=== PATIENT | female | born 1950 | race Caucasian/White ===

== ENCOUNTER → 2016-09-07 | Outpatient (CLI) | payer MEDICARE ==
[2016-09-07 12:09] LABS: CH 28.9; CHCM 32.2; HCT 43.6 % (34.0-46.0); HGB 14.1 gm/dL (11.4-16.0); MCH 29.1 pg (25.0-35.0); MCHC 32.3 g/dL (31.0-37.0); MCV 90.3 fL (80.0-100.0); Mean Platelet Volume 8.6; RBC 4.83 m/uL (3.80-5.40); RDW 13.6 % (11.5-15.5); WBC 13.3 k/uL (3.8-10.6); WBC (Perox) 13.79
[2016-09-07 12:28] LABS: ALT 33 U/L (9-52); AST 21 U/L (14-36); Alkaline Phosphatase 71 U/L (38-126); Anion Gap 12 mmol/L; Blood Urea Nitrogen 15 mg/dL (7-17); Calcium 9.5 mg/dL (8.4-10.2); Carbon Dioxide 24 mmol/L (22-30); Chloride 103 mmol/L (98-107); Cholesterol 229 mg/dL (<200); Glucose 121 mg/dL (74-99); HDL Cholesterol 69 mg/dL (40-60); Non-African American GFR(MDRD) >60 (>60 ml/min/1.73 sqM); Potassium 4.1 mmol/L (3.5-5.1); Sodium 139 mmol/L (137-145); Total Bilirubin 0.5 mg/dL (0.2-1.3); Total Protein 6.8 g/dL (6.3-8.2); Triglycerides 148 mg/dL (<150); Uric Acid 6.2 mg/dL (3.7-7.4)
[2016-09-07 13:16] LABS: Vitamin B12 688 pg/mL
[2016-09-07 14:24] LABS: Add Differential Manual Differential
[2016-09-07 14:27] LABS: Large Platelets Present; Nucleated Red Blood Cells 0 /100 WBC (0-0); Polychromasia Present; Total Cells Counted 100
[2016-09-07 14:28] LABS: Manual Review Performed
== END ==
LOC: LABWHC1 11:39
PROVIDERS: ATTEND Family Medicine
DX: D64.9 Anemia, unspecified (principal); E55.9 Vitamin D deficiency, unspecified; M10.9 Gout, unspecified; I10 Essential (primary) hypertension; F41.1 Generalized anxiety disorder; R53.82 Chronic fatigue, unspecified; E78.2 Mixed hyperlipidemia
CPT/HCPCS: 36415; 80053; 80061; 82306; 82607; 84443; 84550; 85025

== ENCOUNTER → 2017-04-01 | Outpatient (CLI) | payer MEDICARE ==
[2017-04-01 14:22] LABS: Aty Lym Flag Slight; CH 30.3; CHCM 33.1; HCT 44.1 % (34.0-46.0); HDW 2.34; MCH 29.3 pg (25.0-35.0); MCHC 31.8 g/dL (31.0-37.0); RBC 4.79 m/uL (3.80-5.40); WBC 14.7 k/uL (3.8-10.6); WBC (Perox) 14.31
[2017-04-01 14:28] LABS: Add Differential Manual Differential
[2017-04-01 14:49] LABS: ALT 31 U/L (9-52); AST 20 U/L (14-36); Alkaline Phosphatase 75 U/L (38-126); Anion Gap 13 mmol/L; Blood Urea Nitrogen 17 mg/dL (7-17); Calcium 9.8 mg/dL (8.4-10.2); Carbon Dioxide 25 mmol/L (22-30); Chloride 100 mmol/L (98-107); Cholesterol 236 mg/dL (<200); Glucose 96 mg/dL (74-99); HDL Cholesterol 70 mg/dL (40-60); Non-African American GFR(MDRD) >60 (>60 ml/min/1.73 sqM); Potassium 3.7 mmol/L (3.5-5.1); Sodium 138 mmol/L (137-145); Total Bilirubin 0.5 mg/dL (0.2-1.3); Uric Acid 7.4 mg/dL (3.7-7.4)
[2017-04-01 15:02] LABS: Nucleated Red Blood Cells 0 /100 WBC (0-0); Total Cells Counted 200
== END | disposition home or self-care (01) ==
LOC: LABWHC1 13:36
PROVIDERS: ATTEND Family Medicine
DX: D17.9 Benign lipomatous neoplasm, unspecified (principal); C91.10 Chronic lymphocytic leukemia of B-cell type not having achieved remission; I10 Essential (primary) hypertension; I38 Endocarditis, valve unspecified; M10.9 Gout, unspecified; E55.9 Vitamin D deficiency, unspecified
CPT/HCPCS: 36415; 80053; 80061; 82306; 84443; 84550; 85025

== ENCOUNTER → 2017-04-16 | Outpatient (CLI) | payer MEDICARE ==
--- NOTE | 2017-04-16 14:06 | BD ---
EXAMINATION TYPE: MG DEXA axial skeleton. DATE OF EXAM: 04/16/2017 COMPARISON: 01/15/2016 CLINICAL HISTORY: Postmenopausal screening Height: 61 Weight: 194.7 FRAX RISK QUESTIONS: Alcohol (3 or more units per day): no Family History (Parent hip fracture): no Glucocorticoids (More than 3mos): no (Ex: prednisone, prednisolone, methylprednisolone, dexamethasone, and hydrocortisone). History of Fracture in Adulthood: yes Secondary Osteoporosis: 1. Type 1 Diabetes: no 2. Hyperthyroidism: no 3. Menopause before 45: yes 4. Malnutrition: no 5. Chronic liver disease: no Rheumatoid Arthritis: no Current Tobacco Use: no RISK FACTORS HISTORY OF: Hip Fracture (Right/Left): no Spine Fracture: no History of Wrist Fracture: no Surgery to Spine/Hip(right/left)/Wrist (right/left): no Family History of Osteoporosis: no Active: yes Diet low in dairy products/other sources of calcium: no Postmenopausal woman: hysterectomy age 30 Lost more than 2 inches in height since high school: no Frequent falls: no Poor Health: no Hyperparathyroidism: no Adrenal Insufficiency: no MEDICATIONS: Additional History: EXAM MEASUREMENTS: Bone mineral densitometry was performed using the [employer] System. Bone mineral density as measured about the Lumbar spine is: ----- L1-L4(G/cm2): 1.146 T Score Values are as follows: ----- L2: -1.1 ----- L3: -0.5 ----- L4: 1.9 ----- L1-L4: -0.3 Bone mineral density has: increased 4.3 % since study of: 01.15.2016 Bone mineral density about the R hip (g/cm2): 0.739 Bone mineral density about the L hip (g/cm2): 0.814 T Score values are as follows: -----R Neck: -2.1 -----L Neck: -1.6 -----R Total: -0.9 -----L Total: -0.3 Bone mineral density has: increased 0.7 % since study of: 01.15.2016 IMPRESSION: Osteopenia (T Score between -2.5 and -1) as noted by T score values with regards to both hips. There is slightly increased risk of fracture and the patient may be considered for treatment. Re-Screen 2-5 years. NOTE: T-SCORE=SD OF THE YOUNG ADULT MEAN.
--- NOTE | 2017-04-20 08:01 | MM ---
Reason for exam: screening (asymptomatic). Last mammogram was performed 1 year and 3 months ago. History: Patient is postmenopausal and history of other cancer. Took estrogen for 22 years beginning at age 31. Physical Findings: A clinical breast exam by your physician is recommended on an annual basis and results should be correlated with mammographic findings. MG 3D Screening Mammo W/Cad Bilateral CC and MLO view(s) were taken. Prior study comparison: January 15, 2016, bilateral MG 3d screening mammo w/cad. May 14, 2014, bilateral MG screening mammo w CAD. There are scattered fibroglandular densities. There is chronic nodularity in the right breast. No significant changes when compared with prior studies. ASSESSMENT: Negative, BI-RAD 1 RECOMMENDATION: Routine screening mammogram of both breasts in 1 year.
== END | disposition home or self-care (01) ==
LOC: RADMAMWWP 10:17
PROVIDERS: ATTEND Family Medicine
DX: Z12.31 Encounter for screening mammogram for malignant neoplasm of breast (principal); M85.851 Other specified disorders of bone density and structure, right thigh; M85.852 Other specified disorders of bone density and structure, left thigh
CPT/HCPCS: 77080; 77063; G0202

== ENCOUNTER → 2017-11-22 | Outpatient (CLI) | payer MEDICARE ==
[2017-11-22 12:15] LABS: HCT 41.5 % (34.0-46.0); HGB 13.7 gm/dL (11.4-16.0); MCH 30.3 pg (25.0-35.0); MCV 91.8 fL (80.0-100.0); Mean Platelet Volume 9.5; Platelet Count 182 k/uL (150-450); RBC 4.52 m/uL (3.80-5.40); RDW 13.3 % (11.5-15.5); WBC 16.1 k/uL (3.8-10.6)
[2017-11-22 12:26] LABS: ALT 31 U/L (9-52); AST 18 U/L (14-36); Albumin 4.2 g/dL (3.5-5.0); Alkaline Phosphatase 71 U/L (38-126); Anion Gap 14 mmol/L; Blood Urea Nitrogen 23 mg/dL (7-17); Calcium 9.6 mg/dL (8.4-10.2); Carbon Dioxide 24 mmol/L (22-30); Chloride 103 mmol/L (98-107); Cholesterol 176 mg/dL (<200); Glucose 94 mg/dL (74-99); HDL Cholesterol 70 mg/dL (40-60); LDL Cholesterol,Calculated 80 mg/dL (0-99); Potassium 4.2 mmol/L (3.5-5.1); Sodium 141 mmol/L (137-145); Total Bilirubin 0.5 mg/dL (0.2-1.3); Total Protein 6.4 g/dL (6.3-8.2); Triglycerides 131 mg/dL (<150)
[2017-11-22 14:10] LABS: Band Neutrophils % 1 %; Eosinophils # (M) 0.16 k/uL (0-0.7); Lymphocytes # (M) 12.56 k/uL (1.0-4.8); Monocytes # (M) 0.16 k/uL (0-1.0); Neutrophils % (M) 20 %; Nucleated Red Blood Cells 0 /100 WBC (0-0); Total Cells Counted 200
[2017-11-22 14:11] LABS: Anisocytosis (M) Present
[2017-11-22 17:11] LABS: Vitamin D 25 Hydroxy 40.6 ng/mL (30.0-100.0)
[2017-11-22 17:17] LABS: Folate, Serum 14.2 ng/mL
== END | disposition home or self-care (01) ==
LOC: LABWHC1 11:18
PROVIDERS: ATTEND Family Medicine
DX: I10 Essential (primary) hypertension (principal); E78.2 Mixed hyperlipidemia; E55.9 Vitamin D deficiency, unspecified; M1A.00X0 Idiopathic chronic gout, unspecified site, without tophus (tophi); R53.82 Chronic fatigue, unspecified
CPT/HCPCS: 36415; 80053; 80061; 82306; 82607; 82746; 84443; 85025

== ENCOUNTER → 2018-04-18 | Outpatient (CLI) | payer MEDICARE ==
[2018-04-18 14:04] LABS: HCT 41.4 % (34.0-46.0); HGB 13.8 gm/dL (11.4-16.0); MCH 30.8 pg (25.0-35.0); MCHC 33.4 g/dL (31.0-37.0); MCV 92.2 fL (80.0-100.0); Mean Platelet Volume 8.7; Platelet Count 205 k/uL (150-450); RBC 4.49 m/uL (3.80-5.40); RDW 13.6 % (11.5-15.5); WBC 29.2 k/uL (3.8-10.6)
[2018-04-18 14:22] LABS: Albumin 4.5 g/dL (3.5-5.0); Calcium 9.9 mg/dL (8.4-10.2); Potassium 3.5 mmol/L (3.5-5.1); Total Bilirubin 0.7 mg/dL (0.2-1.3); Total Protein 6.9 g/dL (6.3-8.2); Uric Acid 6.6 mg/dL (3.7-7.4)
[2018-04-18 15:15] LABS: Anisocytosis (M) Present; Monocytes # (M) 0.29 k/uL (0-1.0); Neutrophils % (M) 13 %; Nucleated Red Blood Cells 0 /100 WBC (0-0); Poikilocytosis (M) Present; Total Cells Counted 200
--- NOTE | 2018-04-19 11:12 | MM ---
Reason for exam: screening (asymptomatic). Last mammogram was performed 1 year ago. History: Patient is postmenopausal and history of other cancer. Took estrogen for 22 years beginning at age 31. Physical Findings: A clinical breast exam by your physician is recommended on an annual basis and results should be correlated with mammographic findings. MG 3D Screening Mammo W/Cad Bilateral CC and MLO view(s) were taken. Prior study comparison: April 16, 2017, bilateral MG 3d screening mammo w/cad. January 15, 2016, bilateral MG 3d screening mammo w/cad. There are scattered fibroglandular densities. No significant changes when compared with prior studies. ASSESSMENT: Benign, BI-RAD 2 RECOMMENDATION: Routine screening mammogram of both breasts in 1 year.
== END | disposition home or self-care (01) ==
LOC: RADMAMWWP 12:57
PROVIDERS: ATTEND Family Medicine
DX: Z12.31 Encounter for screening mammogram for malignant neoplasm of breast (principal); I10 Essential (primary) hypertension; G89.29 Other chronic pain; M81.0 Age-related osteoporosis without current pathological fracture; E78.2 Mixed hyperlipidemia; E55.9 Vitamin D deficiency, unspecified; M1A.00X0 Idiopathic chronic gout, unspecified site, without tophus (tophi)
CPT/HCPCS: 36415; 77063; 77067; 80053; 80061; 82306; 84443; 84550; 85025

== ENCOUNTER → 2019-05-01 | Outpatient (CLI) | payer MEDICARE ==
--- NOTE | 2019-05-02 12:55 | MM ---
Reason for exam: screening (asymptomatic). Last mammogram was performed 1 year ago. History: Patient is postmenopausal and history of other cancer. Took estrogen for 22 years beginning at age 31. Physical Findings: A clinical breast exam by your physician is recommended on an annual basis and results should be correlated with mammographic findings. MG 3D Screening Mammo W/Cad Bilateral CC and MLO view(s) were taken. Prior study comparison: April 18, 2018, bilateral MG 3d screening mammo w/cad. April 16, 2017, bilateral MG 3d screening mammo w/cad. There are scattered fibroglandular densities. Benign appearing bilateral calcifications. No suspicious abnormality. No significant changes when compared with prior studies. ASSESSMENT: Benign, BI-RAD 2 RECOMMENDATION: Routine screening mammogram of both breasts in 1 year.
== END | disposition home or self-care (01) ==
LOC: RADMAMWWP 11:28
PROVIDERS: ATTEND Family Medicine
DX: Z12.31 Encounter for screening mammogram for malignant neoplasm of breast (principal)
CPT/HCPCS: 77063; 77067

== ENCOUNTER → 2019-06-13 | Outpatient (CLI) | payer MEDICARE ==
[2019-06-13 14:16] LABS: HCT 37.8 % (34.0-46.0); HGB 12.4 gm/dL (11.4-16.0); MCH 31.7 pg (25.0-35.0); MCHC 32.8 g/dL (31.0-37.0); MCV 96.9 fL (80.0-100.0); Mean Platelet Volume 9.3; Platelet Count 185 k/uL (150-450); RDW 14.2 % (11.5-15.5)
[2019-06-13 14:25] LABS: WBC 89.2 k/uL (3.8-10.6)
[2019-06-13 15:05] LABS: Blast Cells # (M) 9.81 k/uL (0); Lymphocytes # (M) 74.04 k/uL (1.0-4.8); Monocytes # (M) 0.89 k/uL (0-1.0); Myelocytes # (M) 0.89 k/uL (0); Myelocytes % 1 %; Neutrophils # (M) 5.35 k/uL (1.3-7.7); Neutrophils % (M) 6 %; Nucleated Red Blood Cells 0 /100 WBC (0-0); Total Cells Counted 200
[2019-06-13 19:27] LABS: African American GFR (CKD) 101.7 (60.0-200.0); Albumin 4.8 g/dL (3.80-4.90); Albumin/Globulin Ratio 3.69 (1.60-3.17); Anion Gap 9.3 mmol/L (4.00-12.00); Calcium 9.1 mg/dL (8.7-10.3); Carbon Dioxide 26.7 mmol/L (21.6-31.8); Chol/HDL Ratio 2.85; Globulin 1.3 g/dL (1.6-3.3); LDL Cholesterol,Calculated 97.2 mg/dL (0.0-131.0); Non-African American GFR(CKD) 87.8 (60.0-200.0); Potassium 3.7 mmol/L (3.5-5.5); Total Bilirubin 0.6 mg/dL (0.2-1.2); Total Protein 6.1 g/dL (6.2-8.2); VLDL Calculation 15.8 mg/dL (5.00-40.00)
[2019-06-13 20:24] LABS: Folate, Serum 15.2 ng/mL
== END | disposition home or self-care (01) ==
LOC: LABWHC1 13:28
PROVIDERS: ATTEND Physician Assistant
DX: M81.0 Age-related osteoporosis without current pathological fracture (principal); I10 Essential (primary) hypertension; E55.9 Vitamin D deficiency, unspecified; C91.10 Chronic lymphocytic leukemia of B-cell type not having achieved remission; R53.82 Chronic fatigue, unspecified; E78.2 Mixed hyperlipidemia; R51 Headache
CPT/HCPCS: 36415; 80053; 80061; 82306; 82607; 82746; 84443; 85025

== ENCOUNTER → 2019-06-20 | Outpatient (CLI) | payer MEDICARE ==
--- NOTE | 2019-06-20 15:29 | BD ---
EXAMINATION TYPE: Axial Bone Density DATE OF EXAM: 06/20/2019 COMPARISON: 2017 CLINICAL HISTORY: M [age] Height: 61 Weight: 195 FRAX RISK QUESTIONS: Alcohol (3 or more units per day): no Family History (Parent hip fracture): no Glucocorticoids (More than 3mos): no (Ex: prednisone, prednisolone, methylprednisolone, dexamethasone, and hydrocortisone). History of Fracture in Adulthood: yes Secondary Osteoporosis: 1. Type 1 Diabetes: no 2. Hyperthyroidism: no 3. Menopause before 45: yes 4. Malnutrition: no 5. Chronic liver disease: no Rheumatoid Arthritis: no Current Tobacco Use: no RISK FACTORS HISTORY OF: Family History of Osteoporosis: unsure Active: yes Diet low in dairy products/other sources of calcium: no Postmenopausal woman: yes Take estrogen and/or progesterone medications: not now How long: age [age] Lost more than 2 inches in height since high school: no Frequent falls: no Poor Health: no Hyperparathyroidism: no Adrenal Insufficiency: no MEDICATIONS: Prednisone or other steroids: no Thyroid Medications: no Osteoporosis Medications: no Additional Medications: D3, multivitamin, blood pressure med, cholesterol med Additional History: Chronic Lymphocytic Leukemia EXAM MEASUREMENTS: Bone mineral densitometry was performed using the [employer] System. Bone mineral density as measured about the Lumbar spine is: ----- L1-L4(G/cm2): 1.193 T Score Values are as follows: ----- L2: -1.3 ----- L3: -0.3 ----- L4: 2.2 ----- L1-L4: 0.1 Bone mineral density has: Increased 1.6 % since study of: 04/16/2017 Bone mineral density about the R hip (g/cm2): 0.767 Bone mineral density about the L hip (g/cm2): 0.823 T Score values are as follows: -----R Neck: -1.9 -----L Neck: -1.5 -----R Total: -0.8 -----L Total: -0.3 Bone mineral density has: Increased 1.2% since study of: 04/16/2017 IMPRESSION: Osteopenia (T Score between -2.5 and -1). There is slightly increased risk of fracture and the patient may be considered for treatment. Re-Screen 2-5 years. NOTE: T-SCORE=SD OF THE YOUNG ADULT MEAN.
== END | disposition home or self-care (01) ==
LOC: RADBDWWP 12:45
PROVIDERS: ATTEND Family Medicine
DX: M85.80 Other specified disorders of bone density and structure, unspecified site (principal)
CPT/HCPCS: 77080

== ENCOUNTER → 2020-09-30 | Outpatient (CLI) | payer MEDICARE ==
--- NOTE | 2020-10-01 11:00 | ECHOF ---
Referral Reason:I34.0 nonrheumatic mitral insufficiency MEASUREMENTS -------- HEIGHT: 157.5 cm WEIGHT: 83.5 kg BP: RVIDd: 2.8 cm (< 3.3) IVSd: 0.8 cm (0.6 - 1.1) LVIDd: 5.4 cm (3.9 - 5.3) LVPWd: 0.9 cm (0.6 - 1.1) IVSs: 1.4 cm LVIDs: 3.6 cm LVPWs: 1.6 cm LAESV Index (A-L): 37.67 ml/m Ao Diam: 2.4 cm (2.0 - 3.7) AV Cusp: 1.8 cm (1.5 - 2.6) LA Diam: 3.3 cm (2.7 - 3.8) MV EXCURSION: 13.536 mm (> 18.000) MV EF SLOPE: 68 mm/s (70 - 150) EPSS: 0.6 cm MV E Raza: 1.19 m/s MV DecT: 175 ms MV A Raza: 0.83 m/s MV E/A Ratio: 1.44 AR PHT: 740 ms RAP: 5.00 mmHg RVSP: 14.63 mmHg FINDINGS -------- This was a technically good study. The left ventricular size is normal. Left ventricular wall thickness is normal. Overall left vent ricular systolic function is normal with, an EF between 55 - 60 %. The diastolic filling pattern is normal for the age of the patient 13.35. The right ventricle is normal in size. LA is moderately dilated 34-39 ml/m2 The right atrial size is normal. The aortic valve is trileaflet and appears structurally normal. There is mild aortic regurgitation. The mitral valve is normal. [id number] mitral regurgitation is present. The tricuspid valve appears structurally normal. Mild tricuspid regurgitation present. Right vent ricular systolic pressure is normal at < 35 mmHg. There is no pulmonic regurgitation present. The aortic root size is normal. Normal inferior vena cava with normal inspiratory collapse consistent with estimated right atrial pre ssure of 5 mmHg. There is no pericardial effusion. CONCLUSIONS -------- 1. The left ventricular size is normal. 2. Left ventricular wall thickness is normal. 3. Overall left ventricular systolic function is normal with, an EF between 55 - 60 %. 4. The diastolic filling pattern is normal for the age of the patient 13.35 5. LA is moderately dilated 34-39 ml/m2 6. There is mild aortic regurgitation. 7. Kcnp-eb-yoyykqsx mitral regurgitation is present. 8. Mild tricuspid regurgitation present. 9. There is no pericardial effusion. SALES MA[employer]GER [employer]: Marta Gruber RDCS
== END | disposition home or self-care (01) ==
LOC: RADECHMAIN 13:52
PROVIDERS: ATTEND Family Medicine
DX: I08.3 Combined rheumatic disorders of mitral, aortic and tricuspid valves (principal)
CPT/HCPCS: 93306

== ENCOUNTER → 2020-11-04 | Outpatient (CLI) | payer MEDICARE ==
--- NOTE | 2020-11-05 12:09 | MM ---
Reason for exam: screening (asymptomatic). Last mammogram was performed 1 year and 6 months ago. History: Patient is postmenopausal and history of other cancer. Took estrogen for 22 years beginning at age 31. Physical Findings: A clinical breast exam by your physician is recommended on an annual basis and results should be correlated with mammographic findings. MG 3D Screening Mammo W/Cad Bilateral CC and MLO view(s) were taken. Prior study comparison: May 01, 2019, bilateral MG 3d screening mammo w/cad. April 18, 2018, bilateral MG 3d screening mammo w/cad. There are scattered fibroglandular densities. Focal asymmetry enlarging 9mm mole on surface, questionable or subcutaneous lymph node. This finding is changed when compared with previous exams. ASSESSMENT: Incomplete: need additional imaging evaluation, BI-RAD 0 RECOMMENDATION: Special view mammogram of the right breast. (confirm mole on work up) If lesion persists on supplemental views, image directed ultrasound is recommended. [facility] will attempt to contact patient to return for supplemental views and ultrasound if indicated.
== END | disposition home or self-care (01) ==
LOC: RADMAMWWP 12:52
PROVIDERS: ATTEND Family Medicine
DX: Z12.31 Encounter for screening mammogram for malignant neoplasm of breast (principal); Z78.0 Asymptomatic menopausal state
CPT/HCPCS: 77063; 77067

== ENCOUNTER → 2020-11-11 | Outpatient (CLI) | payer MEDICARE ==
[2020-11-11 15:06] LABS: African American GFR (CKD) >90 (>60 ml/min/1.73 sqM); Blood Urea Nitrogen 19 mg/dL (7-17); Non-African American GFR(CKD) 90 (>60 ml/min/1.73 sqM)
--- NOTE | 2020-11-11 16:23 | CT ---
EXAMINATION TYPE: CT ChestAbdPelvis w con DATE OF EXAM: 11/11/2020 COMPARISON: None HISTORY: Chronic lymphocytic leukemia, observe for mets CT DLP: 1292 mGycm CONTRAST: CT scan of the chest, abdomen and pelvis is performed with Oral Contrast and with IV Contrast, patien t injected with 100 mL of Isovue 300. CT Chest: LUNGS: The lungs are clear and free of infiltrate or atelectasis. No pulmonary nodule or mass is det ected. No pleural effusion or CT evidence of interstitial lung disease. MEDIASTINUM: Thoracic aorta is of normal caliber. The heart is not enlarged. No evidence for media stinal mass or adenopathy. HILAR STRUCTURES: No evidence for mass. No hilar adenopathy is appreciated. OTHER: Massive bilateral axillary adenopathy measuring 4.3 cm on the left and 3.5 cm on the right. In numerable enlarged lymph nodes are seen bilaterally. Supraclavicular adenopathy partially imaged. CONTRAST CT ABDOMEN AND PELVIS FINDINGS: LIVER/GB: No calcified gallstones. No space occupying hepatic lesion. Biliary tree is of normal ca liber. PANCREAS: No inflammation. No distinct mass. SPLEEN: Spleen measures 13.6 cm craniocaudal dimension. No lesion seen. ADRENALS: No nodule. No thickening. KIDNEYS/BLADDER: No hydronephrosis. No nephrolithiasis. No distinct renal mass. BOWEL: Normal appendix. Normal bowel caliber. No inflammation. GENITAL ORGANS: No gross abnormality. LYMPH NODES: Periportal adenopathy measuring up to 2.9 cm. Celiac axis adenopathy measuring up to 1.5 cm. Para-aortic adenopathy measuring up to 2.1 cm. Pericaval adenopathy measuring up to 2.8 cm. Aort oenteric caval adenopathy measuring up to 1.9 cm. Common iliac chain adenopathy bilaterally measuring up to 2.5 cm. Internal iliac adenopathy on the left measuring up to 4.7 x 4.7 cm and on the right up per to 4.5 cm. External iliac adenopathy bilaterally as well as inguinal adenopathy. OSSEOUS STRUCTURES: No significant abnormality is seen. OTHER: No significant additional abnormality is seen. IMPRESSION: 1. Axillary, supraclavicular, retroperitoneal, celiac axis, periportal and pelvic adenopathy as discu ssed.
== END | disposition home or self-care (01) ==
LOC: RADCTMAIN 14:04
PROVIDERS: ATTEND Internal Medicine Hematology & Oncology
DX: C91.10 Chronic lymphocytic leukemia of B-cell type not having achieved remission (principal); C79.89 Secondary malignant neoplasm of other specified sites
CPT/HCPCS: 82565; 84520; 71260; 74177; 36415; Q9967

== ENCOUNTER → 2020-12-06 | Outpatient (CLI) | payer MEDICARE ==
--- NOTE | 2020-12-09 08:40 | MM ---
Reason for exam: additional evaluation requested from abnormal screening. Last mammogram was performed 1 month ago. History: Patient is postmenopausal and history of other cancer. Took estrogen for 22 years beginning at age 31. Physical Findings: Nurse Summary: 4cm adenopathy in the right and left breast (nurse ts). MG 3D Work Up W/Cad RT CC and MLO view(s) were taken of the right breast. Prior study comparison: November 04, 2020, bilateral MG 3d screening mammo w/cad. May 01, 2019, bilateral MG 3d screening mammo w/cad. There are scattered fibroglandular densities. Right 1.7cm nodule 9 o'clock 9cm from nipple. These results were verbally communicated with the patient and result sheet given to the patient on 12/06/20. ASSESSMENT: Incomplete: need additional imaging evaluation, BI-RAD 0 RECOMMENDATION: Ultrasound of the right breast.
--- NOTE | 2020-12-09 08:44 | USB ---
Reason for exam: additional evaluation requested from abnormal screening. History: Patient is postmenopausal and history of other cancer. Took estrogen for 22 years beginning at age 31. US Breast Workup Limited RT Right limited breast ultrasound including focal area of concern, retroareolar and axilla demonstrates a 1.3 x 1.1 x 0.7cm lobular lymph node at 9 o'clock, reactive lymph node corresponds to nodule and a 4.0 x 2.8 x 3.1cm oval, hypoechoic lesion at the axilla, abnormal lymph node, grossly in right axilla. 1: Intramammary lymph node larger but probably benign. 2: Abnormal grossly right axillary, history of CLL, correlate with CLL recurrence. These results were verbally communicated with the patient and result sheet given to the patient on 12/06/20. ASSESSMENT: Probably benign, BI-RAD 3 RECOMMENDATION: Follow-up diagnostic mammogram and ultrasound of the right breast in 6 months.
== END | disposition home or self-care (01) ==
LOC: RADMAMWWP 14:54
PROVIDERS: ATTEND Family Medicine
DX: N63.10 Unspecified lump in the right breast, unspecified quadrant (principal); N64.89 Other specified disorders of breast; Z78.0 Asymptomatic menopausal state
CPT/HCPCS: 77065; 76642; G0279; 77061

== ENCOUNTER → 2021-06-20 | Outpatient (CLI) | payer MEDICARE ==
[2021-06-20 15:47] LABS: HCT 39.1 % (34.0-46.0); HGB 12.6 gm/dL (11.4-16.0); Hypochromasia Slight; MCH 30.9 pg (25.0-35.0); MCHC 32.1 g/dL (31.0-37.0); MCV 96.3 fL (80.0-100.0); Mean Platelet Volume 11.1; Platelet Count 169 k/uL (150-450); RBC 4.07 m/uL (3.80-5.40); RDW 14.1 % (11.5-15.5); WBC 38.5 k/uL (3.8-10.6)
[2021-06-20 15:57] LABS: Chloride 95 mmol/L (98-107)
[2021-06-20 15:59] LABS: ALT 18 U/L (4-34); AST 21 U/L (14-36); African American GFR (CKD) >90 (>60 ml/min/1.73 sqM); Albumin 4.5 g/dL (3.5-5.0); Alkaline Phosphatase 76 U/L (38-126); Anion Gap 12 mmol/L; Blood Urea Nitrogen 15 mg/dL (7-17); Calcium 9.7 mg/dL (8.4-10.2); Carbon Dioxide 26 mmol/L (22-30); Creatine Kinase 52 U/L (30-135); Globulin 2.3 g/dL; Glucose 106 mg/dL (74-99); Non-African American GFR(CKD) >90 (>60 ml/min/1.73 sqM); Potassium 3.8 mmol/L (3.5-5.1); Sodium 133 mmol/L (137-145); Total Bilirubin 0.7 mg/dL (0.2-1.3); Total Protein 6.8 g/dL (6.3-8.2)
[2021-06-21 03:18] LABS: Chol/HDL Ratio 2.24 Ratio; LDL Cholesterol,Calculated 71.8 mg/dL (0.0-131.0)
--- NOTE | 2021-06-23 08:46 | MM ---
Reason for exam: follow-up at short interval from prior study. Last mammogram was performed 6 months ago. History: Patient is postmenopausal and history of other cancer. Took estrogen for 22 years beginning at age 31. Physical Findings: Nurse did not find any significant physical abnormalities on exam. MG 3D Diag Mammo W/Cad RT CC and MLO view(s) were taken of the right breast. Prior study comparison: December 06, 2020, right breast MG 3d work up w/cad RT. November 04, 2020, bilateral MG 3d screening mammo w/cad. There are benign appearing round calcifications in the right breast. There is chronic nodularity in the right breast, decreased in size. There is no discrete abnormality. These results were verbally communicated with the patient and result sheet given to the patient on 06/20/21. ASSESSMENT: Benign, BI-RAD 2 RECOMMENDATION: Return to routine screening mammogram schedule for both breasts.
--- NOTE | 2021-06-23 08:48 | USB ---
Reason for exam: follow-up at short interval from prior study. History: Patient is postmenopausal and history of other cancer. Took estrogen for 22 years beginning at age 31. US Breast Limited RT Right limited breast ultrasound including focal area of concern, retroareolar and axilla demonstrates a 0.7 x 0.8 x 0.5cm lymph node at 9 o'clock and a 2.0 x 1.5 x 0.9cm lymph node at the axilla, decreased in size, known lymphoma. These results were verbally communicated with the patient and result sheet given to the patient on 06/20/21. ASSESSMENT: Benign, BI-RAD 2 RECOMMENDATION: Return to routine screening mammogram schedule for both breasts.
== END | disposition home or self-care (01) ==
LOC: RADMAMWWP 13:28
PROVIDERS: ATTEND Family Medicine
DX: R92.1 Mammographic calcification found on diagnostic imaging of breast (principal); R92.8 Other abnormal and inconclusive findings on diagnostic imaging of breast; E55.9 Vitamin D deficiency, unspecified; E66.09 Other obesity due to excess calories; E78.2 Mixed hyperlipidemia; F41.1 Generalized anxiety disorder; M19.011 Primary osteoarthritis, right shoulder; I10 Essential (primary) hypertension; R53.82 Chronic fatigue, unspecified; C85.94 Non-Hodgkin lymphoma, unspecified, lymph nodes of axilla and upper limb
CPT/HCPCS: 84439; 80053; 80061; 84443; 82550; 85027; 82306; 77065; 76642; G0279; 77061

== ENCOUNTER 2021-12-21 18:57 | Emergency (ER) | payer MEDICARE ==
[2021-12-21 19:02] VITALS: PULSE 60
[2021-12-21] MEDS ORDERED: HYDROmorphone 0.5 MG/0.5 ML SYRINGE IM STA ×2 (19:15→20:44)
[2021-12-21] MEDS ORDERED: ONDANSETRON ODT 4 MG TAB PO STA (19:15)
--- NOTE | 2021-12-21 20:10 | XR ---
EXAMINATION TYPE: XR elbow limited LT DATE OF EXAM: 12/21/2021 COMPARISON: NONE HISTORY: Fall. Pain TECHNIQUE: 2 views FINDINGS: The elbow joint spaces are normal. A single fracture nor dislocation. Exam limited by posit ioning. No sign of elbow joint effusion. IMPRESSION: No fracture seen. Limited exam.
--- NOTE | 2021-12-21 20:11 | XR ---
EXAMINATION TYPE: XR humerus LT DATE OF EXAM: 12/21/2021 COMPARISON: NONE HISTORY: Pain TECHNIQUE: 2 views FINDINGS: There is impacted nondisplaced fracture left humeral neck. No dislocation. Scapula appears intact. Elbow joint appears intact. IMPRESSION: Acute nondisplaced humeral neck fracture.
--- NOTE | 2021-12-21 20:13 | XR ---
EXAMINATION TYPE: XR hand complete LT DATE OF EXAM: 12/21/2021 COMPARISON: NONE HISTORY: Fall. Pain TECHNIQUE: 3 views FINDINGS: There is narrowing and spurring at the first carpometacarpal joint. I see no fracture nor d islocation. Fingers are intact. There is osteoarthritis with joint space narrowing at the DIP joints of all the digits. IMPRESSION: Osteoarthritis at the base of the thumb. No fracture seen.
--- NOTE | 2021-12-21 20:16 | XR ---
EXAMINATION TYPE: XR wrist limited bilateral DATE OF EXAM: 12/21/2021 COMPARISON: NONE HISTORY: Fall. Pain TECHNIQUE: 2 views each wrist FINDINGS: There is evidence for an acute nondisplaced transverse fracture of the distal right radial metaphysis. No dislocation. There is narrowing and spurring at the right first carpometacarpal joint. There is also spurring at the scaphoid trapezium joint. The left wrist joint appears intact. There is narrowing and spurring at the left first carpometacarpa l joint. IMPRESSION: No acute abnormality of the left wrist. Acute nondisplaced buckle fracture of the distal right radius. IMPRESSION:
--- NOTE | 2021-12-21 20:21 | XR ---
EXAMINATION TYPE: XR shoulder complete LT DATE OF EXAM: 12/21/2021 COMPARISON: NONE HISTORY: Fall. Pain TECHNIQUE: 4 views FINDINGS: There is acute transverse slightly tacky fracture of the left humeral neck. There is commin ution and large chip fracture of the greater tuberosity. The scapula is intact. AC joint is intact. IMPRESSION: Acute comminuted impacted humeral neck fracture. No dislocation.
[2021-12-21] MEDS ORDERED: HYDROmorphone 0.5 MG/0.5 ML SYRINGE IVP STA (20:42)
[2021-12-21] MEDS ORDERED: ACET/COD 300 MG/30 MG STARTER PACK 6 TAB BTL PO STA (21:10)
--- NOTE | 2021-12-21 21:19 | ED ---
Upper Extremity HPI - General Chief Complaint: Extremity Injury, Upper Stated Complaint: fall, shoulder pain Time Seen by Provider: 12/21/21 19:06 Source: patient Mode of arrival: ambulatory Limitations: no limitations - History of Present Illness Initial Comments: Patient is 71-year-old female who presents for evaluation of fall. Patient states she fell off of her deck while trying to tend to her guardian. Patient estimates she fell 2-3 feet. She denies hitting of head and blood thinner use. Denies loss consciousness. The fall was witnessed by her neighbor. Patient is unsure how she landed. Patient endorses left shoulder pain which she states radiates into her left wrist. Patient also endorses right wrist pain. - Related Data Home Medications Medication Instructions Recorded Confirmed Biotin 5 mg PO DAILY 01/27/16 01/27/16 Cyanocobalamin [Vitamin B-12] 500 mcg PO DAILY 01/27/16 01/27/16 Escitalopram Oxalate [Lexapro] 20 mg PO HS 01/27/16 01/27/16 LORazepam [Ativan] 1 mg PO BID PRN 01/27/16 01/27/16 diphenhydrAMINE HCL [Benadryl] 25 mg PO HS 01/27/16 01/27/16 Previous Rx's Medication Instructions Recorded Meclizine [Antivert] 25 mg PO TID PRN #20 tab 01/27/16 Omeprazole [PriLOSEC] 40 mg PO AC-BRKFST #14 capsule. 01/27/16 methylPREDNISolone Dose Pack 4 mg PO DIRECTED #21 package 01/27/16 [Medrol Dose Pack] Chlorthalidone 25 mg PO DAILY #30 tab 01/28/16 HYDROcodone/APAP 10-325MG [Leroy 1 tab PO Q4HR PRN 3 Days #18 tab 12/21/21 10-325] Allergies Allergy/AdvReac Type Severity Reaction Status Date / Time No Known Allergies Allergy Verified 12/21/21 19:02 Review of Systems ROS Statement: Those systems with pertinent positive or pertinent negative responses have been documented in the HPI. ROS Other: All systems not noted in ROS Statement are negative. Past Medical History Past Medical History: Hypertension Additional Past Medical History / Comment(s): diverticulitis, vertigo History of Any Multi-Drug Resistant Organisms: None Reported Past Surgical History: Appendectomy, Bowel Resection, Hysterectomy, Tonsillectomy Additional Past Surgical History / Comment(s): lypomas removed Past Psychological History: Anxiety Smoking Status: Never smoker Past Alcohol Use History: None Reported Past Drug Use History: None Reported - Past Family History Mother History Unknown: Yes Additional Family Medical History / Comment(s): heart disease Father History Unknown: Yes Family Medical History: Myocardial Infarction (OR) General Exam Limitations: no limitations General appearance: alert, in no apparent distress Head exam: Present: atraumatic, normocephalic, normal inspection Eye exam: Present: normal appearance, PERRL, EOMI. Absent: scleral icterus, conjunctival injection, periorbital swelling Neck exam: Present: normal inspection, full ROM. Absent: tenderness Respiratory exam: Present: normal lung sounds bilaterally. Absent: respiratory distress, wheezes, rales, rhonchi, stridor Cardiovascular Exam: Present: regular rate, normal rhythm, normal heart sounds. Absent: systolic murmur, diastolic murmur, rubs, gallop, clicks Extremities exam: Present: other (tenderness over proximal humerus/anterior left shoulder, no overlying erythema/edema/obvious deformity. tenderness and swelling over right lateral wrist, no anatomical snuffbox tenderness) Neurological exam: Present: alert, oriented X3, CN II-XII intact Psychiatric exam: Present: normal affect, normal mood Skin exam: Present: warm, dry, intact, normal color. Absent: rash Course Vital Signs 12/21/21 12/21/21 18:58 21:46 Temperature 97.3 F L 97.9 F Pulse Rate 60 60 Respiratory 24 18 Rate Blood Pressure 142/65 116/53 O2 Sat by Pulse 100 95 Oximetry Medical Decision Making - Medical Decision Making This is a 71-year-old female who presents for evaluation of fall. Thorough history and examination were performed. Patient did not hit her head. Patient endorses left upper extremity and right wrist pain. There is significant tenderness over proximal humerus/anterior left shoulder, no obvious deformity or overlying erythema/edema. There is tenderness and swelling over right lateral wrist. No anatomical snuffbox tenderness. Neurovascularly intact. Left upper extremity x-rays reveal an acute nondisplaced humeral neck fracture. Right wrist x-ray shows an acute nondisplaced buckle fracture of the distal right radius. The left upper extremity was placed in a sling and the right wrist was placed in a volar forearm splint. On reassessment patient is neurovascularly intact. Patient did have severe pain during her emergency stay. It was moderately controlled with Dilaudid. I will send patient home with Leroy. Patient is instructed to follow-up with call center specialist at earliest available appointment. Return parameters discussed. Patient verbalizes understanding and is agreeable to this plan. Dr. Duarte is my attending. Disposition Clinical Impression: Buckle fracture of radius, Fracture of neck of left humerus Disposition: HOME SELF-CARE Condition: Good Instructions (If sedation given, give patient instructions): Arm Fracture in Adults (ED), Wrist Fracture in Adults (ED) Additional Instructions: Take medication as directed. Please do not take Tylenol 3 and Leroy together. You may however take Tylenol 3 OR Leroy together with anti-inflammatories such as Motrin. Keep splint clean and dry. Please keep the sling on until orthopedic evaluation. [facility] thing in the morning. Tell them you have a nondisplaced, impacted left humeral neck fracture and a nondisplaced buckle fracture of the distal right radius. Return to the emergency department experience new, concerning, or worsening symptoms. Prescriptions: HYDROcodone/APAP 10-325MG [Leroy 10-325] 1 tab PO Q4HR PRN 3 Days #18 tab PRN Reason: Pain Is patient prescribed a controlled substance at d/c from ED?: No Referrals: Sincere Dooley DO [Primary Care Provider] - 1-2 days Shon Forte PAC [PHYSICIAN PUBLIC INFORMATION SPECIALIST] - 1-2 days Time of Disposition: 21:19
[2021-12-21 21:48] VITALS: BP 116/53; RESP 18; TEMP 97.9
== END 2021-12-21 21:55 | disposition home or self-care (01) ==
LOC: EC 18:57
DX: S52.92XA Unspecified fracture of left forearm, initial encounter for closed fracture (principal); S42.212A Unspecified displaced fracture of surgical neck of left humerus, initial encounter for closed fracture; M25.531 Pain in right wrist; I10 Essential (primary) hypertension; Z82.49 Family history of ischemic heart disease and other diseases of the circulatory system; W13.0XXA Fall from, out of or through balcony, initial encounter
CPT/HCPCS: 73100; 73030; 73060; 73070; 73130; 99284; 96374; 96372; J1170

== ENCOUNTER → 2021-12-29 | Outpatient (CLI) | payer MEDICARE ==
--- NOTE | 2021-12-29 23:53 | CT ---
EXAMINATION TYPE: CT shoulder LT wo con DATE OF EXAM: 12/29/2021 COMPARISON: X-ray dated 12/21/2021 HISTORY: displaced humerus fx CT DLP: 447.3 mGycm Automated exposure control for dose reduction was used. TECHNIQUE: Multiplanar CT scan of the left shoulder without IV contrast administration. FINDINGS: Comminuted fracture of the left humeral head mainly involving the lesser and greater tuberosities and extending to the left humeral neck. There is impaction at the fracture site with multiple bone fragments. Posterior angulation of the distal fracture fragment. Questionable extension of the f racture line to the humeral head articular surface. No evidence of humeral head dislocation. Hematoma/soft tissue swelling surrounding the described fracture. Advanced degenerative changes of th e acromioclavicular and glenohumeral articulations. No other definite acute fracture line identified. Degenerative changes of the visualized portion of the spine. Subcentimeter left axillary lymph nodes , nonspecific. IMPRESSION: Comminuted impacted fracture of the left humeral head and neck as detailed above, for orthopedic cons ultation.
== END | disposition home or self-care (01) ==
LOC: RADCTMAIN 12:30
PROVIDERS: ATTEND Orthopaedic Surgery
DX: S42.352A Displaced comminuted fracture of shaft of humerus, left arm, initial encounter for closed fracture (principal); S72.002A Fracture of unspecified part of neck of left femur, initial encounter for closed fracture

== ENCOUNTER → 2022-10-06 | Outpatient (CLI) | payer MEDICARE ==
--- NOTE | 2022-10-06 14:50 | BD ---
EXAMINATION TYPE: Axial Bone Density DATE OF EXAM: 10/06/2022 CLINICAL HISTORY: 71 years old Female. ICD-10 CODE: M81.0 AGE RELATED OSTEOPOROSIS Height: 60in Weight: 183lb FRAX RISK QUESTIONS: History of Fracture in Adulthood: yes Secondary Osteoporosis: 3. Menopause before 45: yes RISK FACTORS HISTORY OF: History of Wrist Fracture: yes When: 2021 Family History of Osteoporosis: unsure Active: yes Postmenopausal woman: yes Take estrogen and/or progesterone medications: none current How long: age [age] MEDICATIONS: Additional Medications: vitamin d, cholesterol med, bp med Additional History: leukemia, chemotherapy, shoulder, wrist, sternum and multiple rib fractures EXAM MEASUREMENTS: Bone mineral densitometry was performed using the [employer] System. Bone mineral density as measured about the Lumbar spine is: ----- L1-L4(G/cm2): 1.093 T Score Values are as follows: ----- L1: -1.1 ----- L2: -2.7 ----- L3: 0.1 ----- L4: 0.6 ----- L1-L4: -0.7 Z Score Values are as follows: ----- L1: 0.0 ----- L2: -1.6 ----- L3: 1.2 ----- L4: 1.7 ----- L1-L4: 0.4 Bone mineral density has: Decreased -8.4% since study of: 06-20-2019 Bone mineral density about the R hip (g/cm2): 0.840 Bone mineral density about the L hip (g/cm2): 0.901 T Score values are as follows: -----R Neck: -2.2 -----L Neck: -2.5 -----R Total: -1.3 -----L Total: -0.8 Z Score values are as follows: -----R Neck: -0.8 -----L Neck: -1.0 -----R Total: -0.1 -----L Total: 0.4 Bone mineral density has: Decreased -7.3% since study of: 06-20-2019 FRAX%s: The graph provided illustrates a 22.1% chance for a major osteoporotic fx and a 6% chance for the hips probability for fx in 10 years time. IMPRESSION: Osteopenia (T Score between -2.5 and -1). There is slightly increased risk of fracture and the patient may be considered for treatment. Re-Screen 2-5 years. NOTE: T-SCORE=SD OF THE YOUNG ADULT MEAN.
--- NOTE | 2022-10-07 09:04 | MM ---
Reason for Exam: Screening (asymptomatic). Last mammogram was performed 1 year(s) and 11 month(s) ago. Patient History: Menarche at age 10. First Full-Term at age 16. Left ovary removed at age 31. Right ovary removed at age 31. Hysterectomy at age 31. Postmenopausal. Other cancer. Previous chemotherapy at age 69. Estrogen for 22 years from age 31 until age 53. Risk Values: Padmini 5 year model risk: 1.3%. NCI Lifetime model risk: 3.1%. Prior Study Comparison: 11/04/2020 Bilateral Screening Mammogram, [facility]. 12/06/2020 Right Diagnostic Mammogram, [facility]. 06/20/2021 Right Diagnostic Mammogram, [facility]. Tissue Density: There are scattered fibroglandular densities. Findings: Analyzed By CAD. Pattern appears symmetrical and stable. Benign vascular calcifications present bilaterally. Stable focal asymmetries in the upper outer right breast. Benign spherical calcifications are within the right breast. No significant interval changes are evident. No suspicious groups of microcalcifications, spiculated or lobular masses, architectural distortion or other secondary signs of malignancy are mammographically apparent. Overall Assessment: Benign, BI-RAD 2 Management: Screening Mammogram of both breasts in 1 year. A negative mammogram report should not preclude additional follow up of suspicious palpable abnormalities. Patient should continue monthly self breast exam. A clinical breast exam by your physician is recommended on an annual basis and results should be correlated with mammographic findings. Electronically signed and approved by: Blas Ghotra D.O. Radiologis
== END | disposition home or self-care (01) ==
LOC: RADMAMWWP 12:54
PROVIDERS: ATTEND Family Medicine
DX: Z12.31 Encounter for screening mammogram for malignant neoplasm of breast (principal); M81.0 Age-related osteoporosis without current pathological fracture; M85.89 Other specified disorders of bone density and structure, multiple sites; Z78.0 Asymptomatic menopausal state
CPT/HCPCS: 77063; 77067; 77080

== ENCOUNTER → 2022-10-24 | Outpatient (CLI) | payer MEDICARE ==
[2022-10-24 23:46] LABS: HCT 41.9 % (37.2-46.3); HGB 13.5 g/dL (12.0-15.0); MCH 31.4 pg (27.0-32.0); MCHC 32.2 g/dL (32.0-37.0); MCV 97.4 fL (80.0-97.0); Mean Platelet Volume 11.2 fL (9.5-12.2); NRBC Per 100 WBC 0 /100 WBCS (0.0-0.0); Platelet Count 291 X 10*3/uL (140-440); RDW 13.6 % (11.5-14.5); WBC 15.17 X 10*3/uL (4.50-10.00)
[2022-10-25 00:16] LABS: Basophils # (M) 0 X 10*3/uL (0.00-0.10); Eosinophils # (M) 0 X 10*3/uL (0.04-0.35); Lymphocytes # (M) 5.61 X 10*3/uL (0.90-5.00); Monocytes # (M) 1.06 X 10*3/uL (0.20-1.00); Neutrophils % (M) 56 %
[2022-10-25 08:39] LABS: ALT 15 U/L (8-44); AST 12 U/L (13-35); African American GFR (CKD) 101.8 (60.0-200.0); Albumin 4.4 g/dL (3.8-4.9); Albumin/Globulin Ratio 2.79 (1.60-3.17); Alkaline Phosphatase 66 U/L (41-126); BUN/Creat Ratio 24.92 Ratio (12.00-20.00); Calcium 9.9 mg/dL (8.7-10.3); Carbon Dioxide 28.3 mmol/L (20.0-27.5); Chloride 97 mmol/L (96-109); Chol/HDL Ratio 1.82 Ratio; Globulin 1.6 g/dL (1.6-3.3); Glucose 97 mg/dL (70-110); LDL Cholesterol,Calculated 53.4 mg/dL (0.0-131.0); Magnesium 2.1 mg/dL (1.5-2.4); Non-African American GFR(CKD) 87.8 (60.0-200.0); Potassium 3.7 mmol/L (3.5-5.5); Sodium 137 mmol/L (135-145); Total Protein 5.9 g/dL (6.2-8.2); Uric Acid 5.1 mg/dL (2.9-7.7)
== END | disposition home or self-care (01) ==
LOC: LABWHC1 11:36
PROVIDERS: ATTEND Family Medicine
DX: C91.10 Chronic lymphocytic leukemia of B-cell type not having achieved remission (principal); I10 Essential (primary) hypertension; E78.2 Mixed hyperlipidemia; M15.9 Polyosteoarthritis, unspecified; M1A.00X0 Idiopathic chronic gout, unspecified site, without tophus (tophi); R53.82 Chronic fatigue, unspecified
CPT/HCPCS: 36415; 80053; 80061; 82306; 82607; 83735; 84443; 84550; 85025

== ENCOUNTER → 2023-06-04 | Outpatient (CLI) | payer MEDICARE ==
--- NOTE | 2023-06-06 21:27 | MR ---
EXAMINATION TYPE: MR lumbar spine wo con DATE OF EXAM: 06/04/2023 1:46 PM CLINICAL INDICATION:Female, 72 years old with history of M43.17 SPONDYLOLISTHESIS, Low back pain into sb hips COMPARISON: None TECHNIQUE: Multi planar, multi sequence imaging was performed utilizing: T1-weighted, T2-weighted, a nd turbo inversion recovery imaging of the lumbar spine. IV Contrast: (None if empty) FINDINGS: Alignment: The lumbar vertebral bodies have preserved heights with grade 1 anterolisthesis of L4 on L 5. Cord: The conus medullaris and the distal spinal cord appear unremarkable with regards to their signa l intensity and morphology. Bones/Discs: Multilevel degeneration changes throughout the spine with facet joint arthropathy disc s pace narrowing and osteophytes. There is T12-L1: No evidence of significant spinal canal stenosis or neural foraminal stenosis. L1-L2: Right foraminal disc extrusion with 9 mm superior migration series 301 image 7. This results i n moderate to severe neural foraminal stenosis. L2-L3: Disc bulge and facet joint arthropathy result in mild spinal canal and mild bilateral neural f oraminal stenosis. L3-L4: Disc bulge and facet joint arthropathy result in mild spinal canal and moderate to severe righ t and mild to moderate left bilateral neural foraminal stenosis. L4-L5: Disc uncovering from grade 1 anterolisthesis and facet joint arthropathy with mild spinal kinsey l stenosis and mild severe right and moderate to severe left bilateral neural foraminal stenosis. L5-S1: The disc is rounded posterior morphology without significant spinal canal stenosis. Facet join t arthropathy with mild bilateral neural foraminal stenosis. No significant spinal canal or neural foraminal stenosis in the remainder of the visualized levels. Other findings: Simple appearing right renal cyst. IMPRESSION: 1. Grade 1 anterolisthesis of L4 and L5 with severe right neural foraminal stenosis. 2. L1-L2 left foraminal disc extrusion with 9 mm superior migration of disc material. This results i n moderate to severe neural foraminal stenosis. 3. Moderate disc degeneration changes throughout the spine. 4. No evidence for significant spinal canal stenosis.
== END | disposition home or self-care (01) ==
LOC: RADMRIMAIN 13:04
PROVIDERS: ATTEND Family Medicine
DX: M43.17 Spondylolisthesis, lumbosacral region (principal); M43.16 Spondylolisthesis, lumbar region; M51.36 Other intervertebral disc degeneration, lumbar region; M99.73 Connective tissue and disc stenosis of intervertebral foramina of lumbar region; M48.061 Spinal stenosis, lumbar region without neurogenic claudication
CPT/HCPCS: 72148

== ENCOUNTER → 2023-06-14 | Outpatient (CLI) | payer MEDICARE ==
[2023-06-14 18:53] LABS: HCT 39.9 % (37.2-46.3); MCH 30.2 pg (27.0-32.0); MCHC 32.6 g/dL (32.0-37.0); MCV 92.6 FL (80.0-97.0); Mean Platelet Volume 12.5 FL (9.5-12.2); NRBC Per 100 WBC 0 X 10*3/uL (0.00-0.01); Platelet Count 237 X 10*3/uL (140-440); RBC 4.31 X 10*6/uL (4.10-5.20); RDW 12.7 % (11.5-14.5); WBC 8.96 X 10*3/uL (4.50-10.00)
[2023-06-14 19:23] LABS: ALT 16 U/L (8-44); AST 13 U/L (13-35); Albumin 4.4 g/dL (3.8-4.9); Albumin/Globulin Ratio 2.44 Ratio (1.60-3.17); Alkaline Phosphatase 85 U/L (41-126); Blood Urea Nitrogen 10.4 mg/dL (9.0-27.0); Calcium 9.5 mg/dL (8.7-10.3); Carbon Dioxide 25.2 mmol/L (21.6-31.8); Chloride 96 mmol/L (96-109); Chol/HDL Ratio 2.57 Ratio; Globulin 1.8 g/dL (1.6-3.3); Glucose 116 mg/dL (70-110); LDL Cholesterol,Calculated 70.5 mg/dL (0.0-131.0); Magnesium 1.6 mg/dL (1.5-2.4); Potassium 3.5 mmol/L (3.5-5.5); Sodium 134 mmol/L (135-145); Total Bilirubin 0.4 mg/dL (0.3-1.2); Total Protein 6.2 g/dL (6.2-8.2)
== END | disposition home or self-care (01) ==
LOC: LABWHC1 13:21
PROVIDERS: ATTEND Family Medicine
DX: C91.10 Chronic lymphocytic leukemia of B-cell type not having achieved remission (principal); M1A.00X0 Idiopathic chronic gout, unspecified site, without tophus (tophi); E78.2 Mixed hyperlipidemia; M15.9 Polyosteoarthritis, unspecified; R53.82 Chronic fatigue, unspecified
CPT/HCPCS: 36415; 80053; 80061; 82306; 82607; 82746; 83735; 84443; 85027

== ENCOUNTER → 2023-12-09 | Outpatient (CLI) | payer MEDICARE | END | disposition home or self-care (01) | LOC: RADMAMWWP 16:31 | PROVIDERS: ATTEND Family Medicine | DX: Z53.9 Procedure and treatment not carried out, unspecified reason (principal) ==